=== PATIENT | male | born 1965 | race Caucasian/White ===

== ENCOUNTER → 2016-06-19 | Outpatient (CLI) | payer OTHER | END | disposition home or self-care (01) | LOC: PTH.S 06-05 16:00 | DX: E11.9 Type 2 diabetes mellitus without complications (principal) ==

== ENCOUNTER → 2016-09-10 | Outpatient (CLI) | payer OTHER | END | disposition home or self-care (01) | LOC: PTH.S 08-23 10:15 | DX: E11.9 Type 2 diabetes mellitus without complications (principal) ==